=== PATIENT | male | born 1950 | race Caucasian/White ===

== ENCOUNTER 2019-08-14 06:48 | Inpatient (IN) | payer MEDICARE ==
[2019-08-11 14:09] LABS: BASOPHILS # (AUTO) 0.1 (0.0-0.1); BASOPHILS % 0.8 % (0.0-1.0); EOSINOPHILS # (AUTO) 0.1 (0.0-0.4); EOSINOPHILS % 1.8 % (0.0-6.0); HEMATOCRIT 46.3 % (38.2-49.6); HEMOGLOBIN 16.2 g/dL (14.0-18.0); LYMPHOCYTES # (AUTO) 1.2 (1.0-3.2); LYMPHOCYTES % 15.1 % (18.0-39.1); MEAN CORPUSCULAR HEMOGLOBIN 31.3 pg (28-32); MEAN CORPUSCULAR VOLUME 89.4 fL (81-99); MONOCYTES # (AUTO) 0.8 (0.2-0.8); MONOCYTES % 9.8 % (4.4-11.3); NEUTROPHILS # (AUTO) 5.6 (2.1-6.9); NEUTROPHILS % 72.2 % (38.7-80.0); PLATELET COUNT 261 x10e3/uL (140-360); RED BLOOD COUNT 5.18 x10e6/uL (4.3-5.7); RED CELL DISTRIBUTION WIDTH 14.4 % (11.7-14.4)
--- NOTE | 2019-08-11 14:41 | Diagnostic Imaging Report ---
EXAMINATION: CHEST 2 VIEWS INDICATION: Pre-operative COMPARISON: None FINDINGS: LINES/TUBES:None LUNGS:The lungs are well-inflated. No focal consolidation or pulmonary edema. PLEURA:No pleural effusion or pneumothorax. MEDIASTINUM:The cardiomediastinal silhouette appears normal in size and shape. BONES/SOFT TISSUES:No acute osseous injury. ABDOMEN:No free air under the diaphragm. IMPRESSION: No focal pneumonia or pulmonary edema. Signed by: Berny Bui MD on 08/11/2019 2:38 PM
[~2019-08-14] VITALS: Ht 167.6 cm; Wt 104.3 kg
[~2019-08-14 06:48] MED LIST: ATORVASTATIN CA20 MG PO; CIALIS20 MG PO; FLOMAX0.4 MG PO; LEVOTHYROXINE75 MCG PO; LOSARTAN POTASS25 MG PO
--- OUTSIDE RECORDS SUMMARY | 2019-08-14 06:53 | XMS REPORT | Summary of Care ---
Author Author [facility] - Health Organization [facility] - Health Address Unknown Phone Unavailable Care Team Providers Care Soap Press Feeder Name Role Phone Jane Curiel SHOE DESIGNER PCP Encounter Details Care Team Description Date Type Department Sam Villagran MD [address] [place] [address] [phone] 04/13/2019 Patient Secure [facility] GASTROENTEROLOGY -[address] [place] [phone] Allergies No Known Allergiesdocumented as of this encounter (statuses as of 05/20/2019) Medications End Date Status Medication Sig Dispensed Refills Start Date Active tadalafil (CIALIS) 10 mg Take 1 Tab by 8 Tab 3 tabletIndications: ED mouth as 5 (erectile dysfunction) needed for Erectile dysfunction. Active albuterol 90 Inhale 2 8.5 g 0 mcg/actuation Puffs every 6 9 inhalerIndications: (six) hours Bronchitis with as needed for bronchospasm Wheezing or Shortness of Breath. Active pantoprazole (PROTONIX) Take 40 mg by 0 40 mg EC tablet mouth daily. 06/25/2019 Active irbesartan 300 mg Take 1 tablet 90 tablet 0 tabletIndications: by mouth 9 Participant in health and daily for 90 wellness plan, days. Pre-diabetes 06/25/2019 Active tamsulosin 0.4 mg 24 hr Take 1 90 capsule 0 capsuleIndications: capsule by 9 Participant in health and mouth daily wellness plan for 90 days. Active Polyethylene Glycol 3350 Take 1 Packet 0 (MIRALAX) 17 gram powder by mouth. documented as of this encounter (statuses as of 05/20/2019) Active Problems Problem Noted Date Hematochezia 03/27/2019 Overview: Added automatically from request for surgery [id number] Other seborrheic keratosis 05/15/2013 Actinic keratosis 05/15/2013 documented as of this encounter (statuses as of 05/20/2019) Immunizations Name Administration Dates Next Due Influenza High Dose 09/09/2018 Pneumococcal 13 09/09/2018 Conjugate, PCV13 (Prevnar 13) Pneumococcal 10/03/2015 Polysaccharide, PPSV23 (PNEUMOVAX) TDAP (ADACEL) VACCINE 04/10/2019 Zoster Vaccine 05/09/2012 Recombinant documented as of this encounter Social History Date Tobacco Use Types Packs/Day Years Used Never Smoker Smokeless Tobacco: Never Used Drinks/Week oz/Week Comments Alcohol Use 2-3 drinks of alcohol daily Yes Sex Assigned at Date Recorded Not on file Industry Job Start Date Occupation Not on file Not on file Not on file Travel End Travel History Travel Start No recent travel history available. documented as of this encounter Last Filed Vital Signs Not on filedocumented in this encounter Plan of Treatment Care Team Description Date Type Specialty Ham Hallman [address] [place] [address] [id number] [place], [place] [phone] Faye Linda MD [address] [place] [address]. [place] [phone] 05/29/2019 Office [place] [address] [place], [place] [phone] 07/17/2019 Office Visit Cardiology Health Maintenance Due Date Last Done Comments Zoster Recombinant 07/04/2012 05/09/2012 Vaccine (SHINGRIX) (2 of 2) Medicare Wellness Visit 2013 INFLUENZA VACCINE 06/25/2019 09/09/2018 COLONOSCOPY 04/06/2022 04/06/2019, 10/25/2012 (Previously completed) DTaP,Tdap,and Td Vaccines 04/10/2029 04/10/2019 (2 - Td) PNEUMOCOCCAL VACCINES 65+ Completed 09/09/2018, 10/03/2015 HEPATITIS C (HCV) SCREEN Completed 03/29/2019 documented as of this encounter Goals Goal Patient Associated Recent Progress Patient-Stat Author Goal Type Problems ed? Blood Pressure < 130/80 Blood 152/78 (04/10/2019 Yes Veena, Pressure 3:38 PM CDT) LAINE Lara Note: Monitor blood pressure 3-4X/week. Keep log and bring to next visit documented as of this encounter Results Not on filedocumented in this encounter Insurance Type Payer Benefit Subscriber ID Effective Phone Address Plan / Dates Group Medicare MEDICARE MEDICARE xxxxxxxxxxx 2013-P [phone] [address] resent [id number] [place] [address] Medicare Supplement [facility] [id number] 2013-P [address] resent [id number] MEDICARE [place] SU[place] [id number] documented as of this encounter
--- OUTSIDE RECORDS SUMMARY | 2019-08-14 06:54 | XMS REPORT | Summary of Care ---
Author Author [facility] - Health Organization [facility] - Health Address Unknown Phone Unavailable Care Team Providers Care Order Selector Name Role Phone Jane Curiel CLINICAL BIOSTATISTICIAN PCP Reason for Visit * Reason Comments Follow-up * (Routine) Referred By Contact Referred To Contact Status Reason Specialty Diagnoses / Procedures Alvin Martinez FNP [address] [facility] [address] [place] [address] Closed IM-GASTROENTEROL Diagnoses OGY / Lower GI bleed Gastroenterology P rocedures Discharge Follow-Up: Specialty Service IM-GASTROENTEROLOG Y; 2 Days Encounter Details Care Team Description Date Type Department Ham Hallman [address] [place] [address] [id number] [place] [address] Balwinder Vanegas MD [address] [place] [address]. [place] [phone] Hematochezia (Primary Dx); Diverticulitis of colon (without mention of hemorrhage)(562.11); Internal hemorrhoids; Constipation, unspecified constipation type; Benign neoplasm of cecum 05/29/2019 Office Visit [facility] GASTROENTEROLOGY -[facility] [address] [facility] [address] [place] [phone] Allergies No Known Allergiesdocumented as of this encounter (statuses as of 05/29/2019) Medications End Date Status Medication Sig Dispensed [...] as of this encounter (statuses as of 05/29/2019) Active Problems Problem Noted Date Hematochezia 03/27/2019 Overview: Added automatically from request for surgery [id number] Other seborrheic keratosis 05/15/2013 Actinic keratosis 05/15/2013 documented as of this encounter (statuses as of 05/29/2019) Immunizations Name Administration Dates Next Due Influenza [...] of this encounter Last Filed Vital Signs Reading Time Taken Comments Vital Sign 128/72 05/29/2019 1:40 PM CDT Blood Pressure 86 05/29/2019 1:40 PM CDT Pulse 36.2 C (97.2 F) 05/29/2019 1:40 PM CDT Temperature - - Respiratory Rate - - Oxygen Saturation - - Inhaled Oxygen Concentration 101.9 kg (224 lb 11.2 oz) 05/29/2019 1:40 PM CDT Weight 167.6 cm (5' 6") 05/29/2019 1:40 PM CDT Height 36.27 05/29/2019 1:40 PM CDT Body Mass Index documented in this encounter Progress Notes * Virginia Kilgore MD - 05/29/2019 1:30 PM CDT Gastroenterology Clinic Note Date: 05/29/2019 CC: hematochezia HPI: Jeronimo Arias is a 68 year old male with PMH of HTN, HLD, Hypothyroidism pr esenting for follow-up on hematochezia. Patient with recent colonoscopy for hematochezia that demonstrated bustos-diverticu losis, single polyp (snared and biopsied with lymphoid tissue demonstrated), and internal hemorrhoids. He reports a long standing history of constipation that h as not been well controlled. No previous episodes of melena, hematochezia, diarr hea, or abdominal pain. He denies any tobaccos use, but endorses daily alcohol u se of 2-3 drinks of whiskey daily. He has no family history of colon cancer and no other significant surgeries. Patient was started on miralax daily which has r esolved his symptoms. He is having two bowel movements a day that are brown, non bloody, and soft (Hiwasse 3-4) with no straining. In regards to his acid reflux, prior to starting daily pantoprazole, he was havi ng minimum symptoms - only occurring when eating a large meal prior to bed. He w ould like to discontinue the pantoprazole all together if possible. He has no he artburn, sore throat, cough, dyspepsia. PMHx: Past Medical History: Diagnosis Date Diverticula of colon 2019 Heart murmur on physical examination High cholesterol Hypertension Hypothyroidism Internal hemorrhoids 2019 Pre-diabetes Seasonal allergies PSHx: Past Surgical History: Procedure Laterality Date APPENDECTOMY 1956 COLONOSCOPY N/A 04/06/2019 Surgeon: Sam Villagran MD; Location: [facility] TONSILLECTOMY 1955 FHx: Family History Problem Relation Age of Onset Cancer Mother Breast, lung; passed at 46 Cancer Father prostate; at 65 Cancer Brother brain Diabetes Brother DMII No Significant Medical Problems Brother SHx: Social History Socioeconomic History Marital status: Spouse name: Not on file Number of children: Not on file Years of education: Not on file Highest education level: Not on file Occupational History Not on file Social Needs Financial resource strain: Not on file Food insecurity: Worry: Not on file Inability: Not on file Transportation needs: Medical: Not on file Non-medical: Not on file Tobacco Use Smoking status: Never Smoker Smokeless tobacco: Never Used Substance and Sexual Activity Alcohol use: Yes Comment: 2-3 drinks of alcohol daily Drug use: No Sexual activity: Never Lifestyle Physical activity: Days per week: Not on file Minutes per session: Not on file Stress: Not on file Relationships Social connections: Talks on phone: Not on file Gets together: Not on file Attends samaritan service: Not on file Active member of club or organization: Not on file Attends meetings of clubs or organizations: Not on file Relationship status: Not on file Intimate partner violence: Fear of current or ex partner: Not on file Emotionally abused: Not on file Physically abused: Not on file Forced sexual activity: Not on file Other Topics Concern Not on file Social History Narrative Not on file Medications: Outpatient Medications Marked as Taking for the 05/29/19 encounter (Office Visit) with Balwinder Vanegas MD Medication Sig Dispense Refill Polyethylene Glycol 3350 (MIRALAX) 17 gram powder Take 1 Packet by mouth. irbesartan 300 mg tablet Take 1 tablet by mouth daily for 90 days. 90 tablet 0 pantoprazole (PROTONIX) 40 mg EC tablet Take 40 mg by mouth daily. tamsulosin 0.4 mg 24 hr capsule Take 1 capsule by mouth daily for 90 days. 9 0 capsule 0 tadalafil (CIALIS) 10 mg tablet Take 1 Tab by mouth as needed for Erectile d ysfunction. 8 Tab 3 ROS: General: (-) fever, (-) chills, (-) weight change, (-) dizziness, (-) lightheade dness, (-) decreased appetite, (-) fatigue Skin: (-) rash, (-) lesion HEENT: (-) headache, (-) nasal discharge, (-) sore throat, (-) vision changes, Heme: (-) bleeding disorder Resp: (-) cough, (-) shortness of breath Cardio: (-) chest pain, (-) palpitations GI: per HPI : (-) dysuria, (-) hematuria Endo: (-) polyuria (-) polydipsia Neuro: (-) numbness, (-) tingling KYREE: (-) muscle pain, (-) joint pain Psych: (-) suicidal ideation , (-) homicidal ideation PE: BP 128/72 (BP Location: Right arm, Patient Position: Sitting, BP CUFF SIZE: Adul t Large) | Pulse 86 | Temp 36.2 C (97.2 F) (Temporal Artery) | Ht 5' 6" ( 1.676 m) | Wt 224 lb 11.2 oz (101.9 kg) | BMI 36.27 kg/m General: alert and oriented x 4; no apparent distress HEENT: pupils equal, round, reactive to light; extraocular movements intact; karol pharynx clear; moist mucous membranes Lungs: clear to auscultation bilaterally Cardio: S1, S2 normal; no murmurs, rubs or gallops, regular rate and rhythm Abdomen: soft; non-tender; non-distended; normoactive bowel sounds Extremities: no cyanosis, clubbing or edema Labs - reviewed Imaging - reviewed Endoscopy - reviewed Assessment / Plan: Jeronimo Arias is a 68 year old male with: Constipation Diverticulosis Internal hemorrhoids Symptoms resolved once constipation was addressed Plan - begin bid fiber supplement - use miralax PRN constipation daily - At least 8 glasses of water a day - Exercise to improve gut motility Polyp 2mm polyp removed with biopsy showing normal lymphoid aggregate, no adenomatous changes seen. Repeat colonoscopy in 3 years due to fair prep. Plan - repeat colonoscopy in 3 years Acid Reflux Patient with no active symptoms. He would like to d/c pantoprazole Plan - d/c pantoprazole - begin famotidine QHS PRN acid reflux - Life style modifications as below - Elevate head end of bed - Avoid alcohol - Avoid caffeine (in any form) - Avoid mints - Avoid chocolate - Avoid tight clothing - Avoid eating within 2-3 hours of bedtime - Encouraged to eat 3 meals/day, with dinner being the smallest meal of the day. Patient seen and discussed with faculty, Dr. Muniz and fellow, Dr. Vanegas Follow-up: PRN Virginia Kilgore MD Internal Medicine PGY-3 documented in this encounter Plan of Treatment Care Team Description Date [place] [address] [place], [place] [address] 07/17/2019 Office Visit Cardiology Health Maintenance Due [...] Problems ed? Blood Pressure < 130/80 Blood 128/72 (05/29/2019 Yes Veena, Pressure 1:40 PM CDT) LAINE Lara Note: Monitor blood pressure 3-4X/week. Keep log and bring to next visit documented as of this encounter Results Not on filedocumented in this encounter Visit Diagnoses Diagnosis Hematochezia - Primary Blood in stool Diverticulitis of colon (without mention of hemorrhage)(562.11) Diverticulitis of colon (without mention of hemorrhage) Internal hemorrhoids Internal hemorrhoids without mention of complication Constipation, unspecified constipation type Benign neoplasm of cecum Benign neoplasm of colon documented in this encounter Insurance Type Payer Benefit Subscriber ID Effective Phone Address Plan / Dates Group Medicare MEDICARE MEDICARE xxxxxxxxxxx 2013-P [phone] [address] resent [id number] [place] [address] Medicare Supplement [facility] [id number] 2013-P [address] resent [id number] MEDICARE [place] [id number] (Home) [place] [address] documented as of this encounter
--- OUTSIDE RECORDS SUMMARY | 2019-08-14 06:54 | XMS REPORT ---
Author Author [facility] Address Unknown Phone Unavailable Care Team Providers Care Basin Operator Name Role Phone John SAHU Unavailable Unavailable Problems This patient has no known problems. Allergies, Adverse Reactions, Alerts This patient has no known allergies or adverse reactions. Medications This patient has no known medications. Results Test Description Test Time Test Comments Text Results Atomic Results Result Comments CHEST 2 VIEWS 2019-08-11 14:36:00 [place] [address] Patient Name: EFRAIN ALMARAZ MR #: [id number] : 1950 Age/Sex: 69/M Req #: [id number] [facility] Physician: Ordered by: MARIA LUISA SAHU MD Report #: [id number] Location: OR Room/Bed: Procedure: [id number] DX/CHEST 2 VIEWS Exam Date: 08/11/19 Exam Time: 1340 REPORT STATUS: Signed EXAMINATION: CHEST 2 VIEWS INDICATION: Pre-operative COMPARISON: None FINDINGS: LINES/TUBES:None LUNGS:The lungs are well-inflated. No focal consolidation or pulmonary edema. PLEURA:No pleural effusion or pneumothorax. MEDIASTINUM:The cardiomediastinal silhouette appears normal in size and shape. BONES/SOFT TISSUES:No acute osseous injury. ABDOMEN:No free air under the diaphragm. IMPRESSION: No focal pneumonia or pulmonary edema. Signed by: Isaías Reinoso MD on 08/11/2019 2:38 PM Dictated By: ISAÍAS REINOSO MD 1438 Transcribed By: PATRICE ABDUL on 08/11/19 1438 COPY TO: MARIA LUISA SAHU MD
--- OUTSIDE RECORDS SUMMARY | 2019-08-14 06:54 | XMS REPORT | Summary of Care ---
Author Author [facility] - Health Organization [facility] - Health Address Unknown Phone Unavailable Care Team Providers Care Obstetrics Tech Name Role Phone Jane Curiel LAINE PCP Reason for Visit * Reason Comments Refill Request Encounter Details Care Team Description Date Type Department Jane Curiel FNP [address] [phone] Refill Request 07/03/2019 [facility] [address] [phone] Allergies No Known Allergiesdocumented as of this encounter (statuses as of 07/12/2019) Medications End Date Status Medication Sig Dispensed [...] 0 40 mg EC tablet mouth daily. Active Polyethylene Glycol 3350 Take 1 Packet 0 (MIRALAX) 17 gram powder by mouth. Active irbesartan 300 mg tablet TAKE 1 TABLET 90 tablet 0 EVERY DAY 9 FOR 90 DAYS Active levothyroxine 75 mcg Take 1 tablet 30 tablet 3 tabletIndications: by mouth 9 Acquired hypothyroidism every morning. Active atorvastatin 80 mg Take 1 tablet 30 tablet 3 tabletIndications: Mixed by mouth at 9 hyperlipidemia bedtime. 07/06/2019 Discontinued IRBESARTAN 300 mg tablet TAKE 1 TABLET 90 tablet 0 EVERY DAY 9 FOR 90 DAYS documented as of this encounter (statuses as of 07/12/2019) Active Problems Problem Noted Date Hematochezia 03/27/2019 Overview: Added automatically from request for surgery [id number] Other seborrheic keratosis 05/15/2013 Actinic keratosis 05/15/2013 documented as of this encounter (statuses as of 07/12/2019) Immunizations Name Administration Dates Next Due Influenza [...] Description Date [place] [address] [place] [address] [phone] 07/17/2019 Office Visit Cardiology Jane Curiel, [facility] [address] [phone] 07/18/2019 Office Visit Family Medicine Health Maintenance Due Date Last Done Comments Zoster Recombinant 07/04/2012 05/09/2012 Vaccine (SHINGRIX) (2 of 2) Medicare Wellness Visit 2013 INFLUENZA VACCINE (#1) 2019 09/09/2018 COLONOSCOPY 04/06/2022 04/06/2019, 10/25/2012 (Previously completed) [...] filedocumented in this encounter Visit Diagnoses Diagnosis Acquired hypothyroidism - Primary Unspecified hypothyroidism Mixed hyperlipidemia Mixed hyperlipidemia documented in this encounter Insurance Type Payer Benefit Subscriber ID Effective Phone Address Plan / Dates Group Medicare MEDICARE MEDICARE xxxxxxxxxxx 2013-P [phone] resent [id number] [place] [id number] Medicare Supplement AARP[facility] [id number] 2013-P [address] resent [id number] MEDICARE [place] [id number] documented as of this encounter
[2019-08-14] MEDS ORDERED: IRBESARTAN150 MG PO (07:09)
[2019-08-14] MEDS ORDERED: CEFAZOLIN SOD 1 GM/NS 50ML 100 ML IV ONE (07:14)
[2019-08-14] MEDS ORDERED: BUPIVACAINE 0.25% 30ML SDV INJ ONE (08:31)
[2019-08-14] MEDS ORDERED: SCOPOLAMINE 1.5 MG PATCH TOP SCH (10:00)
[2019-08-14] MEDS ORDERED: MORPHINE SULFATE 2 MG/ML SYR 1ML IV PRN (10:00)
[2019-08-14] MEDS ORDERED: ONDANSETRON HCL INJ 2MG/ML 2ML 2 MG/ML VIAL IV PRN (10:00)
--- NOTE | 2019-08-14 11:02 | Operative Report ---
DATE OF PROCEDURE: 08/14/2019 SURGEON: Ramirez Mckoy MD PREOPERATIVE DIAGNOSES: 1. Morbid obesity, BMI 36. 2. Hypertension. 3. Dyslipidemia. POSTOPERATIVE DIAGNOSES: 1. Morbid obesity, BMI 36. 2. Hypertension. 3. Dyslipidemia. PREOPERATIVE INDICATION: Treat disease, prevent complications related to comorbid conditions of obesity. PROCEDURES: Laparoscopic vertical sleeve gastrectomy. ANESTHESIA: General. CONTINUOUS CONVEYOR SCREEN DRIER: Adiel Crawford, instructor adjunct surgical technician (needed due to complexity of case). FLUIDS: 800 mL of crystalloid. ESTIMATED BLOOD LOSS: 10 mL. DRAINS: None. COMPLICATION: None. SPECIMENS: Partial stomach. GRAFTS: None. FINDINGS: 1. Normal upper GI anatomy. 2. Negative intraoperative EGD leak test. PROCEDURE IN DETAIL: The patient was brought to the operating room and was intubated under general endotracheal anesthesia. He was sterilely prepped and draped in the usual fashion. A preprocedure pause was performed identifying the patient, use of preoperative antibiotics, intended procedure, and staff surgeon. Access was gained via a 5 mm left subcostal incision into the peritoneal cavity. Four additional trocars placed. Abdomen was insufflated. Liver retractor was used to expose the stomach. The greater curvature of the stomach was mobilized with the [place] LigaSure device beginning from about 3 cm proximal to the pyloric valve to the left anel of the diaphragm. I then inserted an adult sized endoscope along the lesser curvature of stomach. The greater curvature of stomach was resected with five firings of a 60 mm purple load Covidien stapling device. I then conducted intraoperative EGD leak test, no leaks were identified. The specimen was removed through the right periumbilical port site. The port site was closed with 0 Vicryl suture using the Liborio David technique in a [id number] fashion. We then verified hemostasis, removed the liver retractor. We then desufflated the abdomen, removed the trocars. Incision sites were closed with 4-0 Monocryl suture in a subcuticular fashion. Dermabond dressings were applied. A 0.25% bupivacaine was used both at the preperitoneal incision sites. The patient tolerated the procedure well. Type of wound was type 2, clean, contaminated. All surgical sponges and counts were correct. MD KADI Richardson/SENAL /[id number]
[2019-08-14 15:24] VITALS: BP 155/79
[2019-08-14 16:35] VITALS: BP 155/79
[2019-08-14] MEDS: SODIUM CHLORIDE 0.9% 1000ML 1,000 ML IV SCH ×2 (16:58→17:38)
--- NOTE | 2019-08-14 17:21 | NUR ---
PT AMBULATING AT THIS TIME, GAIT IS SLOW BUT STEADY. IV FLUIDS BEING ADMINISTERED AT THIS TIME. NO C/O PAIN TO ABD. INCENTIVE SPIROMETER AT BED SIDE, PT EDUCATION PROVIDED ON USE. IV PATENT, NO SWELLING OR REDNESS TO INSERTION SITE. CALL LIGHT WITHIN REACH, BED IN LOWEST POSITION AND LOCKED. ABD LAP SITES CDI, NO BLEEDING OR DRAINAGE TO SITES. 5 LAP SITES OBSERVED.
[2019-08-14 18:09] VITALS: BP 155/79
--- NOTE | 2019-08-14 18:10 | History and Physical ---
CHIEF COMPLAINT: "I underwent weight loss surgery today." HISTORY OF PRESENT ILLNESS: This is a 69-year-old white man, who was admitted to [facility] with diagnosis of obesity, BMI 37, complicating underlying hypertension, prediabetes. The patient today underwent successful laparoscopic vertical sleeve gastrectomy that was performed by his Bariatric Surgeon, name Dr. Ramirez Mckoy. The patient voiced no complaints. The patient states pain is well-controlled. The patient states he still has not had any belching or flatus today. The patient states he still has not had any belching or flatus today, much less bowel movement. REVIEW OF SYSTEMS: GENERAL: The patient has lost 30 pounds in the last month just prepare for the surgery by practicing caloric restriction. No fever or chills. HEENT: No headaches. No visual changes. CARDIOVASCULAR/RESPIRATORY: No chest pain. No shortness of breath. No cough. GI: No nausea, vomiting, or constipation. He denies any flatus or a belching as previously stated in the HPI. : No UTI symptoms, but he does have BPH and erectile dysfunction issues. NEUROMUSCULAR: Denies any limb weakness or numbness. PAST MEDICAL HISTORY: 1. Obesity complicating underlying hypertension. 2. Obesity, BMI of 38. 3. Hypertensive heart disease. 4. Hyperlipidemia. 5. Hypothyroidism. 6. Erectile dysfunction. 7. Benign prostatic hypertrophy. 8. Prediabetes. PAST SURGICAL HISTORY: 1. Tonsillectomy as a child. 2. Appendectomy as a child. 3. Laparoscopic vertical sleeve gastrectomy today. ALLERGIES: NO KNOWN DRUG ALLERGIES. SOCIAL HISTORY: He is single. 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 He states he does have a fiancee, but he lives alone. Drinks alcohol socially. No tobacco use. FAMILY HISTORY: Noncontributory. MEDICATIONS: 1. Atorvastatin 80 mg at bedtime. 2. Irbesartan 150 mg daily. 3. Levothyroxine 75 mcg daily. 4. Tadalafil 20 mg daily as needed for erectile dysfunction. 5. Tamsulosin 0.4 mg once daily. ALLERGIES: NO KNOWN DRUG ALLERGY. PHYSICAL EXAMINATION: GENERAL: He is awake, alert, and fluent. He is very pleasant and cooperative. VITAL SIGNS: Blood pressure is 156/78, respiratory rate is 18, pulse is 60, temperature 98.4, oxygen saturation 97% on room air. INTEGUMENT: Skin is warm and dry. No pallor, jaundice, or diaphoresis. HEENT: Anicteric sclerae. Moist mucous membranes. NECK: Supple. CARDIOVASCULAR: Distant heart sounds. Regular rate and rhythm and S4 gallop. LUNGS: No rales, no rhonchi, and no wheeze. ABDOMEN: Obese and benign. His laparoscopic surgical incisions are clean, dry, and intact. No bowel sounds auscultated. EXTREMITIES: No edema or deformity. NEUROLOGICAL: Intact. He is ambulating the monahan without any difficulty. ADMITTING DIAGNOSES: 1. Obesity, BMI of 37 complicating underlying hypertension and prediabetes. 2. Status post laparoscopic vertical sleeve gastrectomy. 3. Hypertensive heart disease. 4. Hyperlipidemia. PLAN: 1. Resume home medications. 2. Mobilize the patient. 3. Continue enoxaparin for deep venous thrombosis prophylaxis. 4. Intravenous fluids. 5. Monitor blood pressure. 6. Encourage incentive spirometer usage to help prevent atelectasis. I would like to thank Dr. Mckoy for involving me in the care of this patient. I spent 40 minutes in the care of this patient. MD MIRLANDE Jain/JOSLYN /[id number] MTDYolie
--- NOTE | 2019-08-14 19:00 | NUR ---
received report from day nurse. patient is resting comfortably in bed. bed is in lowest position and call ansari is within reach. will continue to monitor patient.
[2019-08-14] MEDS ORDERED: FENTANYL CITRATE/PF 100MCG/2 ML INJ ONE (19:39)
[2019-08-14] MEDS ORDERED: GLYCOPYRROLATE INJ 1MG/ 5 ML SYR ONE (19:39)
[2019-08-14] MEDS ORDERED: ONDANSETRON HCL INJ 2MG/ML 2ML 2 MG/ML VIAL ONE (19:39)
[2019-08-14] MEDS ORDERED: NEOSTIGMINE 5 MG/5ML SYR ONE (19:39)
[2019-08-14] MEDS ORDERED: ROCURONIUM BROMIDE 10 MG/ML 5ML VIAL ONE (19:39)
[2019-08-14] MEDS ORDERED: ACETAMINOPHEN 1000 MG/100 ML IV ONE (19:39)
[2019-08-14] MEDS ORDERED: DEXAMETHASONE SOD PHOS INJ 4 MG/ML VIAL ONE (19:39)
[2019-08-14] MEDS ORDERED: EPHEDRINE SULFATE INJ 50 MG/10 ML SYR ONE (19:39)
[2019-08-14] MEDS ORDERED: LIDOCAINE HCL 2% LOCAL INJ 5 ML SDV VIAL INJ ONE (19:39)
[2019-08-14] MEDS ORDERED: PROPOFOL IV EMULSION 10 MG/ML 20 ML VIAL ONE (19:39)
[2019-08-14 19:56] VITALS: BP 160/84
[2019-08-14 20:00] VITALS: BP 160/84
[2019-08-14] MEDS ORDERED: ATORVASTATIN 20 MG TAB PO SCH (21:00)
[2019-08-14] MEDS ORDERED: ATORVASTATIN 40 MG TAB PO SCH (21:00)
[2019-08-14] MEDS: ENOXAPARIN SOD INJ 40 MG/0.4 ML SYR SC SCH (22:12)
[2019-08-15] VITALS: BP 160/77
[2019-08-15] MEDS: SODIUM CHLORIDE 0.9% 1000ML 1,000 ML IV SCH (01:46)
[2019-08-15 04:00] VITALS: BP 143/88
[2019-08-15] MEDS ORDERED: LEVOTHYROXINE SODIUM 75 MCG TAB PO SCH (06:00)
[2019-08-15] MEDS ORDERED: HYDROCODONE/APAP 7.5MG-325MG 1 EA TAB PO PRN (07:00)
[2019-08-15 07:12] LABS: BASOPHILS % 0.2 % (0.0-1.0); EOSINOPHILS % 0.1 % (0.0-6.0); HEMOGLOBIN 15.6 g/dL (14.0-18.0); LYMPHOCYTES # (AUTO) 0.8 (1.0-3.2); LYMPHOCYTES % 7.8 % (18.0-39.1); MEAN CORPUSCULAR HEMOGLOBIN 31.5 pg (28-32); MEAN CORPUSCULAR HGB CONC 33.2 g/dL (31-35); MEAN CORPUSCULAR VOLUME 94.9 fL (81-99); MONOCYTES # (AUTO) 1.1 (0.2-0.8); MONOCYTES % 10.4 % (4.4-11.3); NEUTROPHILS # (AUTO) 8.8 (2.1-6.9); PLATELET COUNT 234 x10e3/uL (140-360); RED BLOOD COUNT 4.95 x10e6/uL (4.3-5.7); RED CELL DISTRIBUTION WIDTH 14.6 % (11.7-14.4)
--- NOTE | 2019-08-15 07:20 | NUR ---
report given to day nurse. patient is resting comfortably in bed. bed is in lowest position and call ansari is within reach.
--- NOTE | 2019-08-15 07:30 | NUR ---
PROGRESS NOTE S: No complaints O: AF, VSS General- no distress Abdomen- soft, incisions healing well A/P: POD 1, s/p Lap sleeve gastrectomy -Clears, ambulate, IS, OOB to chair -Instructions for diet and follow up given to patient -OK to dc home today from surgery perspective
[2019-08-15 07:33] VITALS: BP 185/91
[2019-08-15 07:43] LABS: ALANINE AMINOTRANSFERASE 19 IU/L (0-55); ALBUMIN 3.4 g/dL (3.5-5.0); ALBUMIN/GLOBULIN RATIO 1.1 (0.8-2.0); ALKALINE PHOSPHATASE 47 IU/L (40-150); ANION GAP 17.9 mmol/L (8-16); BLOOD UREA NITROGEN 19 mg/dL (7-26); BUN/CREATININE RATIO 22 (6-25); CALCIUM 9.2 mg/dL (8.4-10.2); CARBON DIOXIDE 18 mmol/L (22-29); CHLORIDE 104 mmol/L (98-107); CREATININE, SERUM 0.88 mg/dL (0.72-1.25); EST GLOMERULAR FILTRATION RATE > 60 ML/MIN (60-); GLUCOSE 90 mg/dL (74-118); MAGNESIUM 1.8 MG/DL (1.3-2.1); PHOSPHORUS 2.7 MG/DL (2.3-4.7); POTASSIUM 4.9 mmol/L (3.5-5.1); SODIUM 135 mmol/L (136-145)
[2019-08-15] MEDS ORDERED: TAMSULOSIN HCL 0.4 MG CAP PO SCH (09:00)
[2019-08-15] MEDS ORDERED: IRBESARTAN 150 MG TAB PO SCH (09:00)
[2019-08-15 09:45] VITALS: BP 185/91
[2019-08-15] MEDS: ENOXAPARIN SOD INJ 40 MG/0.4 ML SYR SC SCH (10:04)
[2019-08-15 10:07] VITALS: BP 185/91
--- NOTE | 2019-08-15 10:33 | Discharge Summary ---
ADMITTING DIAGNOSES: 1. Obesity, BMI of 37, complicating underlying hypertension and prediabetes. 2. Hypertensive heart disease. 3. Hyperlipidemia. 4. Prediabetes. DISCHARGE DIAGNOSES: 1. Status post laparoscopic vertical sleeve gastrectomy. 2. Obesity, BMI of 37, complicating underlying hypertension and prediabetes. 3. Hypertensive heart disease. 4. Prediabetes. 5. Hyperlipidemia. HOSPITAL COURSE: This is a 69-year-old white man, who was admitted to [facility] with diagnosis of obesity, BMI of 37 complicating underlying hypertension and prediabetes. During this hospitalization, he underwent successful laparoscopic vertical sleeve gastrectomy that was performed by his bariatric surgeon, namely Dr. Ramirez Mckoy. The patient's brief hospitalization was unremarkable. On discharge, he was tolerating clear liquid diet. DISCHARGE MEDICATIONS: 1. Tylenol no. 3, one p.o. t.i.d. p.r.n. pain, 25 prescribed with no refills. 2. Zofran 4 mg p.o. t.i.d. p.r.n. nausea and vomiting, 20 prescribed, no refills. 3. Tamsulosin 0.4 mg at bedtime. 4. Irbesartan 150 mg daily. 5. Levothyroxine 75 mcg daily. 6. Atorvastatin 80 mg at bedtime. FOLLOWUP INSTRUCTIONS: The patient was instructed to follow up with Dr. Ramirez Mckoy within 1 week and with his primary care physician within two weeks. MD MIRLANDE Jain/JOSLYN /[id number] cc: Ramirez Mckoy MD
[2019-08-15 11:18] VITALS: BP 147/80
== END 2019-08-15 11:20 | disposition home or self-care (01) | DRG 621 ==
LOC: OR 06:48 → PACU V 11:11 → IMCU 13:44 → OBSVTOIN 08-15 10:17
PROVIDERS: ADMIT Internal Medicine; ATTEND Internal Medicine
PROC: 0DB64Z3 Excision of Stomach, Percutaneous Endoscopic Approach, Vertical (ICD-10-PCS; principal; 2019-08-14 09:00)
DX: E66.01 Morbid (severe) obesity due to excess calories (principal); Z68.37 Body mass index [BMI] 37.0-37.9, adult; I11.9 Hypertensive heart disease without heart failure; R73.03 Prediabetes; E78.5 Hyperlipidemia, unspecified; E03.9 Hypothyroidism, unspecified; N40.0 Benign prostatic hyperplasia without lower urinary tract symptoms; N52.9 Male erectile dysfunction, unspecified; K21.9 Gastro-esophageal reflux disease without esophagitis
CPT/HCPCS: 36415; 43235; 71046; 80053; 83735; 84100; 85025; 93005; G0378; J0690; J1100; J1650; J2001; J2405; J3010; J7030